=== PATIENT | male | born 1960 | race Caucasian/White ===

== ENCOUNTER 2025-02-10 08:16 | Outpatient (AMB) | payer BC, SELFPAY ==
--- OUTSIDE RECORDS SUMMARY | 2025-02-10 08:18 | XMS_ITS | Clinical Summary ---
Author Organization [address] [facility] Address [address] [place] [address] Phone Care Team Providers Care Ur Coordinator Name Role Phone Vaughn Mckeon MD Primary Care Provide r Allergies No known active allergies Medications furosemide (LASIX) 20 mg tablet TAKE 1/2 TABLET BY MOUTH EVERY OTHER DAY 22 tablet 5 5 Active warfarin (COUMADIN) 5 mg tabletIndications :Unspecified atrial fibrillation (CMS/HCC V24, CMS/HCC V28) TAKE 1-2 TABLETS DAILY DIRECTED BY CLINIC 180 tablet 3 5 Active metoprolol tartrate (LOPRESSOR) 100 mg tablet Take 1 tablet (100 mg total) by mouth 2 (two) times a day. Active docosahexaenoic acid/epa (FISH OIL ORAL) Take by mouth 1 (one) time each day. Active multivitamin with minerals tablet Take 1 tablet by mouth 1 (one) time each day. Active Active Problems Problem Noted Date Diagnosed Date Morbid obesity 11/25/2024 Assessment & Plan (11/25/2024 11:45 AM EDT): This gentleman is morbidly obese and continues to gain weight despite attempting the diet for many years. It is clearly adversely affecting his health and his cardiac status. I did recommend he follow a low-sodium diet, continue efforts at weight loss, and try to exercise regularly as possible. I am going to refer him for weight management given I do believe he would be an excellent candidate for a GLP-1 inhibitor or bariatric surgery. A-fib 01/02/2024 Assessment & Plan (11/25/2024 11:43 AM EDT): Rigoberto is in what is likely clockwise atrial flutter with well-controlled rates on metoprolol and he is anticoagulated with warfarin. He does have an IVC filter and and has been reluctant to 1 undergoing ablation but I would not consider that a complete contraindication. In any case, we will continue with anticoagulation and rate control. No cardiac testing indicated at this time. Benign essential hypertension 09/02/2020 Overview (11/20/2024): Benign essential hypertension Last Assessment & Plan: Inadequately controlled blood pressure. I went through the need to lose weight, avoid excess sodium, chronic NSAIDs or excessive alcohol. I suggest that he take his blood pressure every morning for 1 week and let me know if his systolic is consistently above 135 or diastolic above 85 mmHg. Assessment & Plan (11/25/2024 11:44 AM EDT): Primary hypertension with elevated blood pressures today. I talked to her about increasing his antihypertensive regimen and he is more concerned about his weight which I do agree is a major stimulus for hypertension. I did talk to him about following a low-sodium diet and he will do a 2-week log of blood pressures and if the numbers remain elevated then we will likely add an ARB to his medical regimen. He does not appear to be volume overloaded. Edema 09/02/2020 Overview (11/20/2024): Edema Hyperlipidemia 09/02/2020 Overview (11/20/2024): Hyperlipidemia Last Assessment & Plan: Favorable lipid profile on atorvastatin. Continue healthy diet and exercise. Encounters Date Type Department Care Team Description 01/28/2025 Anticoagulation - Warfarin Visit [facility] [address] [facility] [address] [place] [address] Williams Tam MD Atrial fibrillation, unspecified type (CMS/HCC V24, CMS/HCC V28) (Primary Dx) 01/14/2025 Anticoagulation - Warfarin Visit [facility] [address] [place] [address] Williams Tam MD Atrial fibrillation, unspecified type (CMS/HCC V24, CMS/HCC V28) (Primary Dx) 12/31/2024 Anticoagulation - Warfarin Visit [facility] - [address] [place] [phone] Williams Tam MD Atrial fibrillation, unspecified type (CMS/HCC V24, CMS/HCC V28) (Primary Dx) 12/17/2024 Anticoagulation - Warfarin Visit [facility] - [address] [place] [phone] Williams Tam MD Atrial fibrillation, unspecified type (CMS/HCC V24, CMS/HCC V28) (Primary Dx) 12/10/2024 Anticoagulation - Warfarin Visit [facility] - [address] [place] [phone] Williams Tam MD Atrial fibrillation, unspecified type (CMS/HCC V24, CMS/HCC V28) (Primary Dx) 12/03/2024 Anticoagulation - Warfarin Visit [facility] - [address] [place] [phone] Williams Tam MD Atrial fibrillation, unspecified type (CMS/HCC V24, CMS/HCC V28) (Primary Dx) 11/25/2024 11:10 AM EDT Office Visit [facility] - [address] [place] [phone] Williams Tam MD Paroxysmal atrial fibrillation (CMS/HCC V24, CMS/HCC V28) (Primary Dx); Chronic heart failure with preserved ejection fraction (HFpEF) (CMS/HCC V24, CMS/HCC V28); CAILIN (obstructive sleep apnea); Benign essential hypertension; Morbid obesity (CMS/HCC V24, CMS/HCC V28) 11/19/2024 Anticoagulation - Warfarin Visit [facility] - [address] [place] [address] Ravi Mobley MD Atrial fibrillation, unspecified type (CMS/HCC V24, CMS/HCC V28) (Primary Dx) from Last 3 Months Family History Medical History Relation Name Comments Hypertension Father Other: Other Father Hypertension Mother Other: Other Mother Relation Name Status Comments Father Mother Social History Tobacco Use Types Packs/Day Years Used Date Smoking Tobacco: Former Smokeless Tobacco: Never Alcohol Use Standard Drinks/Week Comments Yes 0 (1 standard drink = 0.6 oz pur e alcohol) Sex and Gender Information Value Date Recorded Sex Assigned at Not on file Legal Sex Male 2:52 PM EST Gender Identity Not on file Sexual Orientation Not on file Last Filed Vital Signs Vital Sign Reading Time Taken Comments Blood Pressure 154/82 11/25/2024 11:00 AM EDT Pulse 71 11/25/2024 11:00 AM EDT Temperature - - Respiratory Rate - - Oxygen Saturation 96% 11/25/2024 11:00 AM EDT Inhaled Oxygen Concentration - - Weight 151 kg (333 lb) 11/25/2024 11:00 AM EDT Height 175.3 cm (5' 9 ) 11/25/2024 11:00 AM EDT Body Mass Index 49.18 11/25/2024 11:00 AM EDT Plan of Treatment Health Maintenance Due Date Last Done Comments Colorectal Cancer Screening: Colonoscopy 1962 Hepatitis A Vaccines (1 of 2 - Risk 2-dose series) 1981 Pneumococcal Vaccine: 50+ Years (1 of 2 - PCV) 1981 RSV Immunization Adult Patients (1 - Risk 50-74 years 1-dose series) 2012 Cholesterol Screening (Lipid Panel) 01/12/2022 HIV Screening 01/12/2022 Hepatitis C Screening 01/12/2022 Social Influencers of Health Screening 01/12/2022 Hypertension/CHF/CAD Annual BMP Blood Test 01/23/2022 Hepatitis B Vaccines (1 of 3 - Risk 3-dose series) 2022 Depression Screening 02/14/2024 COVID-19 Vaccine ( season) 2024 11/22/2023, 10/08/2021, 12/25/2020, Additional history exists DTaP,Tdap,and Td Vaccines (2 - Td or Tdap) 06/18/2033 06/19/2023 Influenza Vaccine Completed 09/18/2024, , 12/25/2020 Zoster Vaccines Completed 09/18/2024, 11/22/2023 HIB Vaccines Aged Out No longer eligi ble based on patient's age to complete this topic HPV Vaccines Aged Out No longer eligi ble based on patient's age to complete this topic IPV Vaccines Aged Out No longer eligi ble based on patient's age to complete this topic MMR Vaccines Aged Out No longer eligi ble based on patient's age to complete this topic Meningococcal ACWY Vaccine Aged Out N o longer eligible based on patient's age to complete this topic Meningococcal B Vaccine Aged Out No l onger eligible based on patient's age to complete this topic RSV Immunization Patients Under 20 months Aged Out No longer eligible based on patient's age to complete this topic Varicella Vaccines Aged Out No longer eligible based on patient's age to complete this topic Procedures Procedure Name Priority Date/Time Associated Diagnosis Comments PROTHROMBIN TIME WITH INR Routine 01/28/2025 PROTHROMBIN TIME WITH INR Routine 01/14/2025 PROTHROMBIN TIME WITH INR Routine 12/31/2024 PROTHROMBIN TIME WITH INR Routine 12/17/2024 PROTHROMBIN TIME WITH INR Routine 12/10/2024 PROTHROMBIN TIME WITH INR Routine 12/03/2024 ECG 12-LEAD Routine 11/25/2024 11:45 AM EDT Paroxysmal atrial fibrillation (CMS/HCC V24, CMS/HCC V28) PROTHROMBIN TIME WITH INR Routine 11/19/2024 from Last 3 Months Results * Prothrombin time with INR (01/28/2025) Only the most recent of7 resultswithin the time period is included. INR 2.7 Prothrombin Time POC Blood Venous blood specimen / Unknown 01/28/2025 Historical Provider LAB BLOOD ORDERABLES Victoria l Result * ECG 12 lead (11/25/2024 11:45 AM EDT) Ventricular Rate ECG 71 BPM GEMUSE Atrial Rate 284 BPM GEMUSE QRS Duration 100 ms GEMUSE Q-T Interval 408 ms GEMUSE QTc 443 ms GEMUSE R [place] 24 degrees GEMUSE T [place] 17 degrees GEMUSE ECG Interpretation Atrial flutter with variable A-V block Abnormal ECG No previous ECGs available Confirmed by Dejan TAM JOHN ([id number]) on 12/04/2024 7:39:58 PM GEMUSE 11/25/2024 11:0 6 AM EDT 12/04/2024 7:39 PM EDT Williams Tam MD ECG ORDERABLES Edited Result - Final GEMUSE from Last 3 Months Insurance [facility] Care Teams Ur Coordinator Relationship Specialty Start Date End Date Vaughn Mckeon MD [address] [place] [address] [place] PCP - General Internal Medicine 09/16/21
--- OUTSIDE RECORDS SUMMARY | 2025-02-10 08:18 | XMS_ITS | Encounter Summary ---
Author Organization [employer] Address [address] [place] [address] Care Team Providers Care Ruby Rails Developer Name Role Phone Vaughn Mckeon MD Primary Care Provide r Encounter Details Date Type Department Care Team (Latest Contact Info) Description 07/30/2024 Anticoagulation - Warfarin Visit [facility] - [facility] [address] [facility] [address] [place] [phone] Williams Tam MD [address] [place] [address] [place] [phone] Atrial fibrillation, unspecified type (CMS/HCC V24, CMS/HCC V28) (Primary Dx) Social History Tobacco Use Types Packs/Day Years Used Date Smoking Tobacco: Former Smokeless Tobacco: Never Alcohol Use Standard Drinks/Week Comments Yes 0 (1 standard drink = 0.6 oz pur e alcohol) Sex and Gender Information Value Date Recorded Sex Assigned at Not on file Legal Sex Male 2:52 PM EST Gender Identity Not on file Sexual Orientation Not on file documented as of this encounter Plan of Treatment Not on file documented as of this encounter Procedures Procedure Name Priority Date/Time Associated Diagnosis Comments PROTHROMBIN TIME WITH INR Routine 07/30/2024 documented in this encounter Results * Prothrombin time with INR (07/30/2024) INR 2.7 Prothrombin Time POC Blood Venous blood specimen / Unknown 07/30/2024 us Historical Provider LAB BLOOD ORDERABLES Victoria l Result documented in this encounter Visit Diagnoses Diagnosis Atrial fibrillation, unspecified type (CMS/[facility] V24, CMS/[facility] V28)- Primary documented in this encounter Care Teams Ruby Rails Developer Relationship Specialty Start Date End Date Vaughn Mckeon MD [address] [place] [address] [place], [place] PCP - General Internal Medicine 09/16/21 documented as of this encounter
--- OUTSIDE RECORDS SUMMARY | 2025-02-10 08:18 | XMS_ITS | Encounter Summary ---
Author Organization [email or web address] Address [address] [place] [address] Care Team Providers Care Corrugator Helper Name Role Phone Vaughn Mckeon MD Primary Care Provide r Encounter Details Date Type Department Care Team (Latest Contact Info) Description 01/23/2024 Anticoagulation - Warfarin Visit [facility] - [facility] [address] [facility] [address] [place] [address] Karen Gerber, LUI [address] [place] [address] [place] [address] Atrial fibrillation, unspecified type (CMS/HCC V24, CMS/HCC [...] Diagnosis Comments PROTHROMBIN TIME WITH INR Routine 01/23/2024 documented in this encounter Results * Prothrombin time with INR (01/23/2024) INR 2.5 Prothrombin Time POC Blood Venous blood specimen / Unknown 01/23/2024 us Historical Provider LAB BLOOD ORDERABLES Victoria l Result documented in this encounter Visit Diagnoses Diagnosis Atrial fibrillation, unspecified type (CMS/[facility] V24, CMS/[facility] V28)- Primary documented in this encounter Care Teams Corrugator Helper Relationship Specialty Start Date End Date Vaughn Mckeon MD [address] [place], [place] [address]chuck Cristobal [place] PCP - General Internal Medicine 09/16/21 documented as of this encounter
--- NOTE | 2025-02-10 08:19 | MHC.OFFVISWM ---
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 BMI 48.3 Allergies No Known Allergies Allergy (Verified 02/10/25 08:22) Medication List - Last Reconciled 02/10/25 by Jeffrey Red MD atorvastatin (Lipitor) 20 mg PO DAILY cholecalciferol (vitamin D3) mcg PO furosemide (Lasix) 10 mg PO Q OTHER DAY metoprolol succinate ER 100 mg PO DAILY multivitamin 1 tab PO DAILY [omega 3 PO] warfarin 5 mg PO DAILY HPI HPI [employer] MWL/SWL BMI 48.3: Details: Start time: 8.13am, End time: 8.58am ?I spent 40 minutes speaking with the patient on the phone plus an additional 5 minutes reviewing and updating records for a total of 45 minutes HPI Comments Details: Previous weight loss efforts: self diet and exercise Wakes up: 4.30am, Sleeps: 9pm Breakfast: skips Lunch: 12pm (yogurt, chicken) Dinner: 5.30pm (chicken, burgers) Snacks: 10am (apple, or tangerine), 4pm (cheese), 7pm (ice cream) Exercise: none Beverages: Coffee: (2 cups/d with creamer and sweetener), Tea: none, Soda: none, Juice: (orange juice x2/month), ETOH: none PFSH Medical History (Updated 02/10/25 @ 08:27 by Jeffrey Red MD) DVT (deep venous thrombosis) DJD (degenerative joint disease) Atrial fibrillation Hypertension Hyperlipidemia Morbid obesity Surgical History (Updated 12/30/24 @ 10:11 by Preethi Mancuso CMA) S/P IVC filter Hx of colonoscopy Hx of bilateral hip replacements Family History (Updated 12/30/24 @ 10:11 by Preethi Mancuso CMA) Father Afib Social History (Updated 12/30/24 @ 10:12 by Preethi Mancuso CMA) Alcohol intake: former Patient Tobacco Use Status: Former Tobacco user Telehealth Telehealth Telehealth Platform: Telephone Location of provider rendering services: practice address Location of patient: address on file Patient Identification confirmed using: Name, : Yes Telehealth method: voice only Patient verbally consented to treatment: Yes Patient verbally consented to billing insurance company: Yes Patient informed of any privacy concerns related to visit: Yes Minutes spent on Phone/Video with Pt.: 45 Assessment & Plan Assessment & Plan (1) Morbid obesity: Code(s): E66.01 - Morbid (severe) obesity due to excess calories Category: Medical Plan: ?1. As we discussed, based on your present BMI you are approximately 150lbs overweight. In my opinion, for any weight loss strategy to be successful should have a high probability to help you lose at least 130lbs out of 150lbs of the extra weight you carry. ?We discussed in detail the available therapeutic options: ?1) our lifestyle intervention program that has an average weight loss of 10% in 3 months.?Some patients continue it for longer and have lost over 50lbs but this is not common. Our lifestyle program can be provided by me. I will provide you with a link to use the virgie if you choose to do so. We use protein shakes and protein bars to replace some of the meals of the day and cover your appetite better. We will decide together the exact combination ?2) Weight loss medications: Your insurance does not cover the new weight loss shots for the first 6 months. We also discussed that you can self pay for the weight loss injections and the cost is $299 for the first month, $349 for the second month and $399 for any other month thereafter. These payments go to the drug company directly and not to us. As we discussed, this is not a [employer] solution, as most patients put all the weight back once they are off the medication. There is also an option to get generic versions from compound pharmacies at cheaper rates but their efficacy and how they are manufactured is not that clear. ?4) We also discussed about the lap sleeve gastrectomy. In my opinion this is the best option to solve your problem based on your situation. ??I emphasized the importance of close follow-up, adherence to instructions and good communication. The surgery does not replace the need to change your lifestlyle which is the cause of the obesity problem. The surgery provides the motivation to try again to change your lifestyle, it reduces the appetite and make the transition to a better lifestyle easier and doubles the amount of weight you would lose compared to doing the lifestyle change without the surgery. You will need to be on a liquid diet with protein shakes for 2 weeks before surgery to maximize weight loss and boost your nutritional status to recover better from surgery and also for the first two weeks after surgery to let the stomach heal before we introduce other foods. After the first 2 weeks we will introduce protein bars and soft foods like scrambled eggs, cottage cheese and yogurt and after the 6th week will introduce meat, fish and cooked vegetables in small amounts. Over time you should be able to eat everything in small amounts. Side effects like nausea, vomiting, heartburn or abdominal pain are not common in the practice unless you are not following in the practice. This operation requires lifetime commitment to following in our practice and communication with me. You will much less weight and experience side effects if you don?t communicate or not following in the practice. Complications are rare and in our practice is about 1/10 of the national average. 5) Very Important: We do extensive research in this practice. In very recent research we did, we found that patients who did the lifestyle program without medications followed by weight loss surgery, lost twice as much as they would lose if they used the shots for the same period of time and with the two groups being completely matched in terms of demographics and starting weights. Another research study we did found that when we compared patients who did our lifestyle program without or with the weight loss shots, they lost the same weight but they did not lose any muscle mass. The patients who used the shots lost about 3% of their muscle mass in 3 months which translates to 5-15lbs of actual muscle mass depending on each patient's initial weight. That's not good because it makes you frail and weak and reduces your metabolism. In another research study we did, we found that losing 10-20% of your initial weight before the weight loss surgery, followed by surgery at the lowest possible weight, gives you a significant boost in [employer] weight loss 6 years or more after surgery, that makes a difference in the long-term success. Preoperative weight loss is not commonly used by many practices especially at this magnitude, but it is our philosophy and makes a huge difference. As we discussed, we will start with a meal and exercise plan while you are considering the other options: MEAL PLAN: 2. Nutritional counseling. Start with one CELEBRATE REBUILD protein (buy online with the link I gave you) shake (ONE scoop in 8oz low fat unsweetened almond milk) at 5am-7am, 1 protein bar (CELEBRATE protein bars, buy at [facility], buy online with the link I gave you) ) at 8am-10am, another CELEBRATE REBUILD protein shake (one scoop in 8oz low fat unsweetened almond milk) at 11am-1pm, another Celebrate protein bar at 2pm-4pm, dinner at 5pm (12 forks of protein and 12 forks of salad/vegetables) AND another Celebrate protein bar after dinner at 7pm-9pm. So you do 2 protein shakes, 3 protein bars and one meal per day. Meal to include lean meat (beef, fish, pork, turkey, chicken), or paraguayan yogurt, or egg whites, or beans with a salad with olive oil and fruits (berries, pears, apples, kiwi). Avoid salt, breads, potatoes, rice, pasta, desserts. 3. Each shake would be drunk slowly, like coffee in a period of 2 hours. 4. Cut each bar in 4 pieces and eat each piece in 30min ?to make each bar last 2 hours. 5. I emphasized the importance of measuring accurately the food portion and measure it when serving the food in plate 6. The meal portions include 12 full-size forks of meat and 12 full-size forks of salad. You always eat the meat portion but you can replace up to 6 forks for salad/vegetables with rice, potatoes or pasta, or a fruit ?if you like. The less you do it the better weight loss will be. 7. One full-size fork is what it can be scooped on the fork without falling aside and not what can be bit with the fork. Use regular forks like those you find in a typical restaurant. 8.? Please buy the body composition scale we discussed and send me weight measurements as soon as possible and then once a week. Always include your diet and exercise plan. 10. The best choice would be to purchase a stationary bike at home that can track calories. If you get one, please start stationary bike at a resistance level of 0.0 Increase level by 1.0 every 3 min to a max level of 6.0. Stay at this level for 3 min and then return to level 0.0 and repeat same steps until 300 calories are burned. I would suggest that you split that to 100 calorie session, three times per day. Goal is to burn 2000 calories per week on exercise 12. Goal is to lose at least 1.5-2lbs per week 13. Goal to lose at least 10% of your weight, which is about 33lbs. Minimum weight goal: 295lbs 14. Please follow the diet plan exactly without any change. If you don't like something about the plan or you feel hungry you need to communicate with me so I can help you revise the plan. You should not change the plan yourself
[2025-02-10 08:28] VITALS: BMI 48.3
== END 2025-02-10 08:58 | disposition home or self-care (01) ==
LOC: HO.HBS 08:16
PROVIDERS: PCP Internal Medicine; Visit Provider Surgery
DX: E66.01 Morbid (severe) obesity due to excess calories (principal); Z68.42 Body mass index [BMI] 45.0-49.9, adult
CPT/HCPCS: 99204